=== PATIENT | male | born 1935 | race Caucasian/White ===

== ENCOUNTER → 2016-07-21 | Outpatient (CLI) | payer MEDICARE ==
[~2016-07-21] MED LIST: ASPI1TAB69 PO; ASPI81 PO; CALC-137 PO; CALC600T25 PO; CENTTAB9 PO; DIOV80TA4 PO; ESCI20TA PO; FENO160T PO; FISH1000 PO; LANTUS2P SQ; LANTUSP SQ; LEVO50TA4 PO; LEVO88TA2 PO; LEXA20TA PO; LIPI80TA PO; LIPI80TA16 PO; MULTTAB67 PO; NEUR300C PO; NEXI20CA PO; NIAC500T5 PO; OMEGCAP PO; OXYC1TAB36 PO; PERC10TA27 PO; PERC7.5T13 PO; PRIL20TA2 PO; URSO300 PO; URSO300C2 PO; VALS1TAB70 PO; VITA200012 PO; VITA200017 PO
[2016-07-21 11:19] LABS: BASOPHIL % 0.5 % (0.0-2.0); EOSINOPHIL # 0.1 TH/MM3 (0-0.4); EOSINOPHIL % 1.4 % (0.0-4.0); HEMATOCRIT 34.5 % (39.0-51.0); HEMO FLAGS DIFF FINAL; LYMPH % 16.9 % (9.0-44.0); MEAN CORPUSCULAR HEMOGLOBIN 30.7 PG (27.0-34.0); MEAN CORPUSCULAR HGB CONC 33.3 % (32.0-36.0); MONO % 12.1 % (0.0-8.0); NEUT % 69.1 % (16.0-70.0); PLATELET COUNT 132 TH/MM3 (150-450); RED BLOOD COUNT 3.75 MIL/MM3 (4.50-5.90); RED CELL DISTRIBUTION WIDTH 13.7 % (11.6-17.2); WHITE BLOOD COUNT 5.7 TH/MM3 (4.0-11.0)
[2016-07-21 11:40] LABS: BICARBONATE 27.9 MEQ/L (21.0-32.0)
--- NOTE | 2016-07-21 19:18 | EKG ---
Date Performed: 07/21/2016 Time Performed: 10:11:57 PTAGE: 80 years EKG: Sinus rhythm WITH FIRST DEGREE AV BLOCK WITH OCCASIONAL VENTRICULAR PREMATURE COMPLEXES MODERATE INTRAVENTRICULAR CONDUCTION DELAY ABNORMAL ECG NO PREVIOUS TRACING DOCTOR: Burt Moreland Interpretating Date/Time 07/21/2016 19:16:10
== END ==
LOC: CPRE 09:38
PROVIDERS: ATTEND Orthopaedic Surgery Orthopaedic Surgery of the Spine
DX: Z01.810 Encounter for preprocedural cardiovascular examination (principal); Z01.812 Encounter for preprocedural laboratory examination; M50.323 Other cervical disc degeneration at C6-C7 level; M50.222 Other cervical disc displacement at C5-C6 level; M50.223 Other cervical disc displacement at C6-C7 level; I44.0 Atrioventricular block, first degree; I49.3 Ventricular premature depolarization
CPT/HCPCS: 36415; 80048; 85025; 93005

== ENCOUNTER 2016-07-31 07:15 | Observation (INO) | payer MEDICARE ==
[~2016-07-31] VITALS: Ht 172.7 cm; Wt 95.0 kg
[~2016-07-31 07:15] MED LIST changes: -ASPI81 PO; -CALC-137 PO; -CENTTAB9 PO; -DIOV80TA4 PO; -FISH1000 PO; -LANTUSP SQ; -LEVO50TA4 PO; -LEXA20TA PO; -LIPI80TA16 PO; -NEUR300C PO; -PERC10TA27 PO; -PERC7.5T13 PO; -PRIL20TA2 PO; -URSO300 PO; -VITA200017 PO
[2016-07-31] MEDS ORDERED: SODIUM CHLOR 0.9% 250 ML INJ 250 ML ONE (08:01)
[2016-07-31] MEDS ORDERED: LACTATED RINGER'S 1000 ML INJ 1,000 ML ONE (08:02)
[2016-07-31] MEDS ORDERED: VANCOMYCIN HCL 1000 MG VIAL ONE (08:02)
[2016-07-31 08:03] VITALS: BP 153/75; PULSE 71; RESP 18; TEMP 98; O2SAT 98
[2016-07-31] MEDS ORDERED: BUPIVACAINE/EPINEPHRINE 0.25% PF 30 ML VIAL ONE (08:25)
[2016-07-31] MEDS ORDERED: GENTAMICIN SULFATE 80 MG/2 ML VIAL ONE (08:25)
[2016-07-31] MEDS ORDERED: METOPROLOL TARTRATE 25 MG TAB PO PRN (08:30)
[2016-07-31] MEDS ORDERED: CHLORHEXIDINE GLUCONATE 4% SOLN 120 ML BTL TOP SCH (08:30)
[2016-07-31] MEDS ORDERED: LACTATED RINGER'S 1000 ML IV SCH (08:30)
[2016-07-31] MEDS ORDERED: VANCOMYCIN 1000 MG/NS 250 ML (for <70 kg) IV SCH ×2 (08:30)
[2016-07-31] MEDS ORDERED: INSULIN HUMAN REGULAR 1,000 UNITS/10 ML VIAL SQ PRN (08:30)
[2016-07-31] MEDS ORDERED: ceFAZolin 2 GM PREMIX 50 ML IV SCH (08:30)
[2016-07-31] MEDS ORDERED: SODIUM CHLORID 0.9% 500 ML IV SCH (08:30)
[2016-07-31] MEDS ORDERED: ACETAMINOPHEN 1000 MG/100 ML VIAL IV ONE (09:30)
[2016-07-31] MEDS ORDERED: DEXAMETHASONE SOD PHOS 4 MG/ML VIAL ONE (09:31)
[2016-07-31] MEDS ORDERED: MIDAZOLAM HCL 2 MG/2 ML VIAL ONE (09:31)
[2016-07-31] MEDS ORDERED: FAMOTIDINE 20 MG/2 ML VIAL ONE (09:31)
[2016-07-31] MEDS ORDERED: ePHEDrine/NS 25 MG/5 ML SYR IV ONE (12:00)
[2016-07-31] MEDS ORDERED: LACTATED RINGER'S 1000 ML INJ 2,000 ML IV ONE (12:00)
[2016-07-31] MEDS ORDERED: PHENYLEPH/NS 1000 MCG/10 ML SYR IV ONE (12:00)
[2016-07-31] MEDS ORDERED: PROPOFOL 200 MG/20 ML AMP IV ONE (12:00)
[2016-07-31] MEDS ORDERED: NEOSTIGMINE 3 MG/3 ML SYR IV ONE (12:00)
[2016-07-31] MEDS ORDERED: ONDANSETRON HCL 4 MG/2 ML VIAL IV PUSH ONE (12:00)
--- NOTE | 2016-07-31 13:23 | HHI.PR ---
Immediate Post Op Note Procedure Date: Jul 31, 2016 Pre Op Diagnosis: C5-6 ODC,Joel FS C6-7 ODC,HNP,Joel FS DDD,OA Joel Cervical Rad Post Op Diagnosis: Same Surgeon: Juan Murillo MD Manager Field Sales(s): Monica Godoy PA-C Procedure: C5-6,C6-7 AIF,ACC,ASI Complications: None Estimated blood loss: See chart Anesthesia: General Drains: None Patient to: PACU Patient Condition: Good Implant/Devices: SEE IMPLANT LOG (if applicable) Date/Time of Procedure: SEE SURGICAL CARE RECORD Juan Murillo MD Jul 31, 2016 13:23
[2016-07-31] MEDS ORDERED: PROMETHAZINE INJ 25 MG/ML VIAL IM PRN (13:30)
[2016-07-31] MEDS ORDERED: oxyCODONE/ACETAMINOPHEN 7.5 MG/325 MG TAB PO PRN ×2 (13:30)
[2016-07-31] MEDS ORDERED: ALUMINUM/MAGNESIUM/SIMETH 30 ML CUP PO PRN (13:30)
[2016-07-31] MEDS ORDERED: ONDANSETRON HCL 4 MG/2 ML VIAL IV PRN (13:30)
[2016-07-31] MEDS: SODIUM CHLORIDE 0.9% FLUSH 5 ML FLUSH IVF SCH ×2 (13:30→20:06)
[2016-07-31] MEDS ORDERED: Post-op Orders (for Pharmacy) MISC XX ONE (13:30)
[2016-07-31] MEDS ORDERED: MORPHINE SULFATE 4 MG/ML INJ IV PUSH PRN (13:30)
[2016-07-31] MEDS ORDERED: SODIUM CHLORIDE 0.9% FLUSH 5 ML FLUSH IVF PRN (13:30)
[2016-07-31] MEDS ORDERED: fentaNYL CITRATE 250 MCG/5 ML AMP ONE (13:39)
--- NOTE | 2016-07-31 13:45 | PD.OP ---
cc: Juan Murillo MD; Baron Murillo MD Operative Report Date of Surgery: Jul 31, 2016 Preoperative Diagnosis: Osteophyte disc complex C5 6 and C6 7. Left greater than right bilateral cervical radiculopathy. Cervical instability, C5 6, moderate Postoperative Diagnosis: Same Procedure: Anterocervical discectomy decompression and bilateral foraminotomies, C5 6. Anterocervical discectomy decompression and bilateral foraminotomy, C6 7. Right anterior iliac crest bone graft Anesthesia: Gen. Surgeon: Baron Murillo Manager Actuarial(s): LINDSAY Cortés Operation and Findings: EBL: 100 cc INDICATIONS: Patient is a 80-year-old male with significant spinal stenosis and bilateral cervical radiculopathy related to the above condition. Despite conservative care the patient was still very painful and symptomatic. He now presents for surgical treatment NOTE: Jeaneth Cortés PA-C was present for the entire surgical procedure as my orthodontic technician assistant. In my medical opinion her skill and care was necessary for proper management of this patient PROCEDURE: The patient was brought to the operating room and anesthetized in the supine position. This patient was positioned supine on the radiolucent table. All pressure points were protected in the anterior cervical spine and iliac crest was scrubbed with alcohol followed by Hibiclens followed by ChloraPrep. A timeout was done and antibiotics were given within 1 hour time window. Lateral radiographic images were used identifying the proper level. A right anterior incision was made in line with skin creases. The platysma was opened in line with the incision. Deep dissection continued in the interval between the carotid sheath and the esophagus. The longus-coli muscles were lifted on both sides and retractors were positioned allowing good exposure. Lateral radiographic images were used to identify the proper level. [place] style interosseous pins were placed at C5 and C6 allowing exposure to that level. The microscope was rolled into the field. A total discectomy was accomplished and posterior osteophytes were removed. The posterior longitudinal ligament and annulus was taken down. Bilateral foraminotomies were accomplished. The endplates were squared up anticipating later bone grafting. A blunt probe could be placed out each foramen without evidence of nerve root compromise. The C5 pin was placed down to C7. An anterior exposure was accomplished. We performed a total discectomy with excision of the posterior annulus and posterior longitudinal ligament. Bilateral foraminotomies were accomplished. Osteophytes were removed. The endplates were squared up anticipating later bone grafting. A blunt probe could be placed out each foramen without evidence of nerve root compromise. The left iliac crest was approached. A small stab incision was made allowing percutaneous access to the anterior iliac crest. Multiple cores of cancellous bone were harvested and taken to the back table to be used for later bone grafting. The wound was irrigated anesthetized and closed with 4-0 Vicryl followed by Dermabond. The case was turned over to Dr. Juan Murillo for fusion and instrumentation per his dictation. FINDINGS: There was evidence of a high-grade stenosis at both levels with significant bilateral foraminal stenosis. At the C6 7 level the C6-C7 foramen had significant stenosis related to an osteophyte which was resected. The decompression was felt be very satisfactory at both levels. No complication was noted. NOTE: This surgery was performed in 2 parts. The first part was the neurosurgical decompression performed under the variable power stereo microscope by the undersigned in addition to the bone graft. The second portion of the surgery will be performed by the orthopedic spine component by co -surgeon, Dr. Juan Murillo for the anterior fusion with interbody cage and anterior plate. The skill of 2 surgeons was necessary to perform distinct separate procedural services as dictated above and dictated in the following operative note by Dr. Juan Murillo. Baron Murillo MD Jul 31, 2016 13:45
[2016-07-31] MEDS ORDERED: LACTATED RINGER'S 1000 ML INJ 1,000 ML IV SCH (14:00)
[2016-07-31] MEDS ORDERED: *morphine SULFATE 8 MG/ML PERIprocedure ONLY ONE (14:07)
--- NOTE | 2016-07-31 14:23 | RADRPT ---
EXAM DATE/TIME: 07/31/2016 11:35 [place] COMPARISON: No previous studies available for comparison. INDICATIONS : C5-6, C6-7 Anterior cervical disc fusion. MEDICAL HISTORY : Hypertension. Gastroesophageal reflux disease. Diabetes mellitus type II. Arthritis. SURGICAL HISTORY : None. ENCOUNTER: Initial ACUITY: 1 day PAIN SCORE: Non-responsive. LOCATION: Cervical spine. FINDINGS: Two projection examination was performed. Anterior surgical plate and screws from C5-C7. There is no rmal alignment and curvature of the vertebral bodies down to the level of C7. No evidence of fractur e or subluxation. Vertebral body height is maintained. The disc spaces are maintained. The prevert ebral soft tissues are of normal thickness. The atlanto-axial articulation is intact. CONCLUSION: Anterior cervical spine fusion. No evidence of complication. Marielos Oro MD on July 31, 2016 at 14:21 Board Certified Radiologist. This report was verified electronically.
[2016-07-31] MEDS ORDERED: DO NOT ADM ANY ANTICOAGULANT DRUGS XX PRN (15:00)
[2016-07-31] MEDS ORDERED: GLUCAGON 1 MG/ML VIAL OTHER PRN (15:30)
[2016-07-31] MEDS ORDERED: DEXTROSE 50% IN WATER 50 ML VIAL(D50) IV PUSH PRN (15:30)
--- NOTE | 2016-07-31 15:59 | PD.CONS ---
HPI Service [facility] Hospitalists Consult Requested By Dr. Murillo Reason for Consult Medical management Primary Care Physician Jose Lozano MD Diagnoses: History of Present Illness 80-year-old male with past medical history DDD who underwent discectomy C5-6, C6 -7. Hospitalists were consulted for medical management. The patient has a past medical history of DDD, HTN, depression, HLD, DM, GERD, hypothyroidism, PAD , CKD. The patient is seen postoperatively. He has some posterior neck pain, mild. He has a mild sore throat, was told he is to be on soft diet after surgery. He has no other acute medical complaints at this time including nausea , vomiting, chest pain, shortness of breath. History is obtained from the patient with family at bedside as well as review of the medical record. Review of Systems Other 10 point review of systems performed and was negative except as stated in the history of present illness Past Family Social History Allergies: Coded Allergies: Contrast Media (Verified Allergy, Severe, ONLY HAS ONE KIDNEY, 07/21/16) ADVISED NOT TO TAKE, ONE KIDNEY Past Medical History Degenerative disc disease Hypertension Depression Hyperlipidemia Diabetes mellitus GERD Hypothyroidism Peripheral arterial disease Chronic kidney disease stage 3-4 Past Surgical History Discectomy Shoulder replacement Cholecystectomy Cataract surgery AAA repair Lower extremity arterial bypass Spine surgery Reported Medications Nexium (Esomeprazole DR) 20 Mg Capdr 20 Mg PO DAILY Oxycodone-Acetaminophen 10-325 mg Tab 1 Tab PO Q4H PRN Lantus Inj (Insulin Glargine) 100 Unit/Ml Inj 75 Units SQ HS Calcium (Calcium Carbonate) 600 Mg Tab 1 Tab PO DAILY Levothyroxine (Levothyroxine Sodium) 88 Mcg Tab 88 Mcg PO DAILY Vitamin D3 (Cholecalciferol) 2,000 Unit Tab 2,000 Units PO DAILY Fenofibrate 160 Mg Tab 160 Mg PO DAILY Aspirin 81 Mg Tabdr 81 Mg PO DAILY [place]-3 Fish Oil/Vitamin (Fish Oil-Cholecalciferol) 1,000-1,000 Mg Cap 1 Cap PO BID Lipitor (Atorvastatin Calcium) 80 Mg Tab 80 Mg PO HS Multiple Vitamin 1 Tab 1 Tab PO DAILY Escitalopram (Escitalopram Oxalate) 20 Mg Tab 20 Mg PO DAILY Ursodiol 300 Mg Cap 300 Mg PO BID Valsartan 320 Mg Tab 320 Mg PO DAILY Niacin 500 Mg Tab 500 Mg PO DAILY Active Ordered Medications Current Medications Medications (Trade) Dose Ordered Sig/Haja Route Start Time Stop Time Status Last Admin Lactated Ringer's 1,000 ml @ 30 mls/hr Q24H IV 07/31/16 08:30 (NS 500 ml Inj) 500 ml @ 30 mls/hr [id number] IV 07/31/16 08:30 08/01/16 08:29 (Hibiclens 4% Top Soln) 1 applic ONCE TOP 07/31/16 08:30 08/03/16 08:29 (Lipitor) 80 mg HS PO 07/31/16 21:00 (Lexapro) 20 mg DAILY PO 08/01/16 09:00 (Tricor) 145 mg DAILY PO 08/01/16 09:00 (Levemir Inj) 75 units HS SQ 07/31/16 21:00 (Synthroid) 88 mcg DAILY@0600 PO 08/01/16 06:00 (Actigall) 300 mg BID PO 07/31/16 21:00 (Diovan) 320 mg DAILY PO 08/01/16 09:00 (Protonix) 20 mg DAILY PO 08/01/16 09:00 Niacin 500 mg 500 mg DAILY PO 08/01/16 09:00 (Lr 1000 ml Inj) 1,000 ml @ 80 mls/hr [id number] IV 07/31/16 14:00 07/31/16 14:00 (NS Flush) 2 ml UNSCH PRN IVF 07/31/16 13:30 IV Flush 2 ml 2 ml BID IVF 07/31/16 13:30 (Ancef Inj/NS Inj) 100 ml @ 200 mls/hr Q8H IV 07/31/16 18:00 08/01/16 10:29 (Morphine Inj) 3 mg Q3H PRN IV PUSH 07/31/16 13:30 (Phenergan Inj) 25 mg Q4H PRN IM 07/31/16 13:30 (Theragran M Tab) 1 tab BID PO 08/01/16 09:00 09/30/16 08:59 (Zofran Inj) 4 mg Q6H PRN IV 07/31/16 13:30 (Mag-Al Plus Susp Liq) 30 ml Q6H PRN PO 07/31/16 13:30 (Ambien) 5 mg HS PRN PO 07/31/16 21:00 (Percocet 7.5-325 Mg) 1 tab Q6H PRN PO 07/31/16 13:30 (Percocet 7.5-325 Mg) 2 tab Q6H PRN PO 07/31/16 13:30 Miscellaneous Information ALL NURSING DEPARTME... UNSCH PRN XX 07/31/16 15:00 08/01/16 14:59 (D50w (Vial) Inj) 25 ml UNSCH PRN IV PUSH 07/31/16 15:30 (Glucagon Inj) 1 mg UNSCH PRN OTHER 07/31/16 15:30 Family History Father with cancer Mother with dementia Social History Former tobacco use 20 years ago Physical Exam Vital Signs Vital Signs Date Time Temp Pulse Resp B/P Pulse Ox O2 Delivery O2 Flow Rate FiO2 07/31/16 14:45 98.1 78 15 152/77 98 Nasal Cannula 2 07/31/16 14:30 71 15 150/74 98 Nasal Cannula 3 07/31/16 14:15 72 14 151/77 98 Nasal Cannula 3 07/31/16 14:00 77 15 146/74 98 Nasal Cannula 3 07/31/16 13:45 77 15 132/67 97 Nasal Cannula 3 07/31/16 13:32 97.5 75 15 130/63 97 Nasal Cannula 3 07/31/16 08:03 98.0 71 18 153/75 98 Physical Exam GENERAL: Well-developed well-nourished. In no acute distress. SKIN: Warm and dry. No lesions noted. HEENT: Normocephalic. Pupils equal and round. Mucous membranes pink and moist. Cervical collar in place with right anterior neck surgical dressing, CDI. CARDIOVASCULAR: Regular rate and rhythm. No murmur appreciated. RESPIRATORY: No accessory muscle use. Clear to auscultation. Breath sounds equal bilaterally. GASTROINTESTINAL: Abdomen soft, non-tender, nondistended. Bowel sounds x4. MUSCULOSKELETAL: No obvious deformities. No clubbing or cyanosis. No edema. NEUROLOGICAL: Awake and alert. No focal neurological deficits. Moves upper and lower extremities spontaneously. Normal speech. Sensation grossly intact in upper and lower extremities. Strength 5/5. PSYCHIATRIC: Appropriate mood and affect; insight and judgment normal. Imaging Last Impressions Cervical Spine X-Ray 07/31/16 0000 Signed Impressions: Service Date/Time: Thursday, July 31, 2016 11:35 - CONCLUSION: Anterior cervical spine fusion. No evidence of complication. Marielos Oro MD Assessment and Plan Assessment and Plan 80-year-old male with past medical history DDD who underwent discectomy C5-6, C6 -7. Hospitalists were consulted for medical management. The patient has a past medical history of DDD, HTN, depression, HLD, DM, GERD, hypothyroidism, PAD , CKD. S/P Anterocervical discectomy decompression and bilateral foraminotomies, C5 6. Anterocervical discectomy decompression and bilateral foraminotomy, C6 7. Right anterior iliac crest bone graft -Postoperative care per primary surgery team including activity, diet, pain control, and rehabilitation efforts. Diabetes mellitus: Continue home basal insulin 75 units at night. Additional coverage with SSI with Accu-Cheks. Chronic kidney disease stage IIIIV: Creatinine 2.44 on 07/21/16. Follow-up BMP in the a.m. Other chronic medical conditions as listed above: Stable at this time and will continue home medications as indicated. DVT prophylaxis: Per surgery service. Written by Avelino Redd, acting as scribe for Dr. Ramsey on 07/31/16 at 15:59. The documentation accurately reflects the work performed [id number] by ca Dr. Ramsey on 07/31/16 at 15:59. Discussed Condition With Patient with family at bedside. Avelino Redd Jul 31, 2016 15:59 Medina Ramsey MD Jul 31, 2016 16:24
[2016-07-31 16:00] VITALS: BP 162/92; PULSE 87; RESP 16; TEMP 95.3; O2SAT 96
[2016-07-31] MEDS: INSULIN ASPART SUPPLEMENTAL SCALE SQ SCH ×2 (16:00→20:06)
[2016-07-31 17:26] VITALS: O2SAT 96
[2016-07-31 20:00] VITALS: BP 155/80; PULSE 95; RESP 16; TEMP 96.5; O2SAT 98
[2016-07-31 20:14] VITALS: O2SAT 98
[2016-07-31] MEDS ORDERED: ATORVASTATIN 80 MG TAB PO SCH (21:00)
[2016-07-31] MEDS ORDERED: INSULIN DETEMIR 100 UNITS/ML VIAL SQ SCH (21:00)
[2016-07-31] MEDS ORDERED: ZOLPIDEM TARTRATE 5 MG TAB PO PRN (21:00)
[2016-07-31] MEDS: URSODIOL 300 MG CAP PO SCH (21:01)
[2016-08-01] VITALS: BP 148/82; PULSE 95; RESP 16; TEMP 98.5; O2SAT 96
[2016-08-01 04:00] VITALS: BP 148/75; PULSE 102; RESP 16; TEMP 96.7; O2SAT 97
[2016-08-01] MEDS: INSULIN ASPART SUPPLEMENTAL SCALE SQ SCH (05:16)
[2016-08-01] MEDS ORDERED: LEVOTHYROXINE SODIUM 88 MCG TAB PO SCH (06:00)
--- NOTE | 2016-08-01 06:58 | PD.ORT.PN ---
Subjective Subjective Remarks pt states arms and neck are doing well, does complain of post op soreness also has sore throat, no chest pain, no SOB Objective Vitals Vital Signs Date Time Temp Pulse Resp B/P Pulse Ox O2 Delivery O2 Flow Rate FiO2 08/01/16 04:00 96.7 102 16 148/75 97 08/01/16 00:00 98.5 95 16 148/82 96 07/31/16 20:14 98 Nasal Cannula 2.00 07/31/16 20:08 Nasal Cannula 2.00 07/31/16 20:00 96.5 95 16 155/80 98 07/31/16 17:26 96 Nasal Cannula 2.00 07/31/16 16:00 95.3 87 16 162/92 96 07/31/16 14:45 98.1 78 15 152/77 98 Nasal Cannula 2 07/31/16 14:30 71 15 150/74 98 Nasal Cannula 3 07/31/16 14:15 72 14 151/77 98 Nasal Cannula 3 07/31/16 14:00 77 15 146/74 98 Nasal Cannula 3 07/31/16 13:45 77 15 132/67 97 Nasal Cannula 3 07/31/16 13:32 97.5 75 15 130/63 97 Nasal Cannula 3 07/31/16 08:03 98.0 71 18 153/75 98 I/O 07/31/16 07/31/16 07/31/16 08/01/16 08/01/16 08/01/16 07:00 15:00 23:00 07:00 15:00 23:00 Intake Total 2700 ml 360 ml 427 ml Output Total 900 ml 1300 ml 450 ml Balance 1800 ml -940 ml -23 ml Intake Oral 360 ml IV Total 100 ml 427 ml Other 2600 ml Output Urine Total 700 ml 1300 ml 450 ml Estimated Blood Loss 200 ml # Bowel Movements 0 Objective Remarks also seen by Dr. Juan Murillo [place] collar in place dressing dry and intact motor is +5/5 to UE Assessment & Plan Assessment and Plan POD # 1 s/p C5-7 ACDF [place] collar x 4 weeks no overhead lifting, no smoking, no NSAIDs Percocet 7.5 mg rx in chart discharge today, orthopedically stable Monica Godoy Aug 01, 2016 06:58
[2016-08-01 07:03] LABS: HEMATOCRIT 31.5 % (39.0-51.0); REVIEW FLAG FINAL
[2016-08-01 07:11] LABS: BICARBONATE 27.9 MEQ/L (21.0-32.0); MAGNESIUM 1.8 MG/DL (1.5-2.5); POTASSIUM 4.4 MEQ/L (3.5-5.1)
[2016-08-01 08:02] VITALS: BP 161/73; PULSE 78; RESP 18; TEMP 96.4; O2SAT 92
[2016-08-01] MEDS ORDERED: MULTIVITAMINS/MINERALS THERAPEUTIC TAB PO SCH (09:00)
[2016-08-01] MEDS: SODIUM CHLORIDE 0.9% FLUSH 5 ML FLUSH IVF SCH (09:00)
[2016-08-01] MEDS ORDERED: ESCITALOPRAM OXALATE 20 MG TAB PO SCH (09:00)
[2016-08-01] MEDS ORDERED: VALSARTAN 160 MG TAB PO SCH (09:00)
[2016-08-01] MEDS ORDERED: NIACIN 500 MG EXTENDED RELEASE TAB PO SCH (09:00)
[2016-08-01] MEDS ORDERED: PANTOPRAZOLE SOD 20 MG DELAYED RELEASE TAB PO SCH (09:00)
[2016-08-01] MEDS ORDERED: FENOFIBRATE 145 MG TAB PO SCH (09:00)
[2016-08-01] MEDS: URSODIOL 300 MG CAP PO SCH (09:51)
--- NOTE | 2016-08-01 10:19 | HHI.PR ---
Addendum to Inpatient Note Addendum Reason: Additional Documentation Additional Information Stable medically to follow up with PCP and consultants as OP. Hospitalist will sign off, reconsult as need. eMdina Ramsey MD Aug 01, 2016 10:19
[2016-08-01] MEDS ORDERED: PERC7.5T13 PO (10:32)
--- NOTE | 2016-08-06 06:31 | MP ---
cc: CAROL ANN TORRES MD, ALBERT W. M.D. DATE OF SURGERY July 31, 2016 PREOPERATIVE DIAGNOSES 1. C5-6 osteophyte disk complex, moderate bilateral foraminal stenosis. 2. C6-7 osteophyte disk complex, moderate herniated nucleus pulses, bilateral foraminal stenosis. 3. Cervical spine degenerative disc disease, osteoarthritis. POSTOPERATIVE DIAGNOSES 1. C5-6 osteophyte disk complex, moderate bilateral foraminal stenosis. 2. C6-7 osteophyte disk complex, moderate herniated nucleus pulses, bilateral foraminal stenosis. 3. Cervical spine degenerative disc disease, osteoarthritis. PROCEDURE C5-6, C6-7 anterior interbody fusion; C5-6, C6-7 [employer] ACC anterior cervical cage; C5-C7 [employer] [place] anterior spinal instrumentation. SURGEON Heriberto Murillo MD CABANA ATTENDANT Monica Godoy PA-C ESTIMATED BLOOD LOSS See chart. SPECIMEN None. COMPLICATIONS None. ANESTHESIA General. DRAINS None. CONDITION Stable. PLAN OF ACTIVITY As per orders. PROCEDURE Dr. Baron Murillo and myself were co-surgeons on this procedure. Dr. Baron Murillo performed the anterior cervical exposure the C5-6 and C6-7 anterior cervical discectomy, anterior decompression, bilateral foraminotomies using intraoperative microscope at C5-6 and C6-7 and right anterior iliac crest bone grafting. I was not present for his portion of the procedure. This is well described in his operative note. I performed the orthopedic stabilization and fusion portion of the procedure which is well described in my operative note. My lead assistant manager, Monica Godoy PA-C, was present for my portion of the case with me. She was medically necessary for this portion of the case because of the complexity of the case and to facilitate the performance of the procedure. The COMMUNITY DEVELOPMENT TECHNICIAN at the back table was not of the skill-set for this case to manipulate the instruments including multiple different types of soft tissue retractors, trial implants and permanent implants. The patient was met in the operating room, had satisfactory anesthesia by the Department of Anesthesia. The patient had right anterior cervical spine exposure. The operating microscope was used for anterior cervical discectomy at C5-6 and C6-7, anterior decompression and right anterior iliac crest bone grafting which was performed by Dr. Baron Murillo. I was not present for his portion of the procedure. The endplates at C6-7 were prepared for fusion. Hyaline cartilage endplate was removed using angle curettes and a ella. An 8, 10 x 12 ACC cage was placed in the interspace. The anterior iliac crest bone grafting was used under fluoroscopic guidance for an interbody fusion. Next, dissection was carried out at the C5-6 interspace. The endplates were curetted using angled curets and burrs. A 7, 10 x 12 ACC cage was placed in the interspace. Anterior iliac crest bone graft was used under fluoroscopically guided for the interbody fusino. Anterior osteophytes were removed using multiple different types of rongeurs and burrs. A 46-mm plate contoured in appropriate cervical lordosis. Two screws were used in the vertebral body at C5, C6 and C7. Each screw was 14 mm in length, 4.0 mm in outer diameter and fixed angle screws. Each screw was drilled and the screws were inserted with appropriate locking of the screw head to the plate. There was a single tack screw to keep the plate in appropriate position which was confirmed under fluoroscopically guided in the AP and lateral plane for appropriate positioning of the plate. Following the insertion of the anterior spinal instrumentation, intraoperative fluoroscopy in AP and lateral plane confirmed satisfactory position of the bone graft at C5-6 and C6-7, fixation of ACC cages at C5-6 and C6-7 with satisfactory position of anterior spinal instrumentation from C5 to C7. Because of the patient's very large size, there was some difficulty visualizing the lateral view. The wound was irrigated with copious amounts of sterile saline antibiotic solution. Surgiflo was used throughout the surgical case to help prevent postoperative bleeding. Adequate irrigation was performed. The patient was found to have no further bleeding. The wound was closed in multiple layers using 3-0 Vicryl suture. The skin was approximated with running subcuticular 4-0 Vicryl suture, Dermabond skin glue placed over the incision, sterile dressing applied, the patient placed in [place] cervical orthosis. The patient tolerated the procedure well and arrived in the recovery room in stable and satisfactory condition. MD HERVE Nunn/KARLIE /1:12 PM /6:03 AM
== END 2016-08-01 11:08 | disposition home or self-care (01) ==
LOC: HSDC 07:15 → HSDI 13:33 → N06B 15:15
PROVIDERS: ADMIT Orthopaedic Surgery Orthopaedic Surgery of the Spine; ATTEND Orthopaedic Surgery Orthopaedic Surgery of the Spine
DX: M50.123 Cervical disc disorder at C6-C7 level with radiculopathy (principal); M48.02 Spinal stenosis, cervical region; M53.2X2 Spinal instabilities, cervical region; M25.78 Osteophyte, vertebrae; I12.9 Hypertensive chronic kidney disease with stage 1 through stage 4 chronic kidney disease, or unspecified chronic kidney disease; N18.4 Chronic kidney disease, stage 4 (severe); E11.22 Type 2 diabetes mellitus with diabetic chronic kidney disease; I73.9 Peripheral vascular disease, unspecified; E03.9 Hypothyroidism, unspecified; E78.5 Hyperlipidemia, unspecified; K21.9 Gastro-esophageal reflux disease without esophagitis
CPT/HCPCS: 00600; 22551; 22552; 22845; 22853; 72040; 76000; 80048; 82948; 83735; 85014; 85018; 94150; C1713; G0378; J0131; J0690; J1100; J1580; J1815; J2250; J2270; J2370; J2405; J2710; J3010; J3370; J7050; J7120; L0150

== ENCOUNTER → 2017-06-04 | Day surgery (SDC) | payer MEDICARE ==
[~2017-06-04] MED LIST changes: +BUPIVACAINE HCL PF 0.75% 30 ML VIAL ONE; -CALC600T25 PO; +CALC600T5 PO; +EPINEPHrine HCL (1:1000) 30 MG/30 ML VIAL ONE; +LACTATED RINGER'S 1000 ML INJ 1,000 ML ONE; +LIDOCAINE 1.5%/EPINEPHrine 1:200,000 PF SOLN 30 ML AMP ONE; +MIDAZOLAM HCL 5 MG/ML VIAL (1 ML) ONE; -OXYC1TAB36 PO; +PERC7.5T13 PO; +PROPOFOL 200 MG/20 ML AMP IV ONE; +ceFAZolin 2 GM PREMIX 50 ML ONE
--- NOTE | 2017-06-04 11:00 | MP ---
cc: CARLOS SIERRA M.D. 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 PROCEDURE 1. Left shoulder arthroscopic extensive debridement of bursal tissue, scar tissue, rotator cuff tissue and bony overgrowth of the proximal humerus. 2. Left shoulder arthroscopic subacromial decompression including partial acromionectomy with removal of the anterior and lateral acromial scar tissue. ANESTHESIA Interscalene block and general SURGEON Carlos Sierra MD GUEST SERVICE AIDE SURGEON JOSIE Aguilar ESTIMATED BLOOD LOSS Minimum DRAINS None SPECIMEN Extensive scar tissue and bone was debrided and discarded. COMPLICATIONS None known. INDICATION Jeffrey Song is a 81-year-old male who previously underwent left reverse total shoulder arthroplasty. He has chronic pain and stiffness and crepitation and limited use of this arm with attempted overhead activities. He has chronic pain in his shoulder and he has failed multiple other means of conservative management. He also has a reverse shoulder on the right side which is functioning very well. The bony alignment of both shoulders looks relatively the same and the glenosphere on the left maybe slightly only a few millimeters more superior than one on the right and it maybe slightly anterior within the glenoid compared to the left again only by a few millimeters. With failure of conservative management, he is now offered arthroscopic surgery with no guarantees offered. The risks and benefits were thoroughly discussed and a detailed informed consent was obtained. STORE MGR An advanced registered nurse practitioner and his skill set was medically necessary to help with the arthroscopic equipment and the positioning of the arm and his skill set was medically necessary for the performance of the operation. PROCEDURE The patient was given interscalene block in the preop holding area then brought into the operating room and placed under a general anesthetic. He was placed in the well-padded beach chair position. The left upper extremity was prepped and draped in the usual sterile fashion. His neck was positioned by the patient while he was still awake and then we maintained it with axial alignment and taped it in place with a doughnut roll underneath the back of this head as the patient had a prior history of neck surgery. The bony landmarks were drawn out about the shoulder. IV antibiotics were given, time-out was completed. We used a two portal technique posteriorly underneath the acromion and lateral to the junction of the anterior and middle thirds of the acromion. Prior to placing the arthroscope, we took the arm through a range of motion and we did note crepitation anterolaterally where he his reproducible symptoms on multiple prior examinations. In introducing the arthroscope, we encountered a tremendous amount of scar tissue which we tried to break up with the blunt trocar and then we made our lateral portal and tried to bring in the blunt trocar to break up scar tissue and then proceeded with extensive debridement of the scar tissue in the bursal region, lateral border, posterior aspect of the humeral head, anterior aspect of the humeral head. Once we had adequate visualization, we photographed large scar tissue from the humeral head to the anterior acromial process and then proceeded to take this down and then identified the anterior acromial spurring and then proceeded with taking out more extensive amounts of scar tissue and then performing a subacromial decompression and then doing a follow-up photograph here and then continued to take out extensive scar tissue and we visualized the superior aspect of the reverse shoulder and there was prior retracted rotator cuff which was debrided and sutures were debrided. We thoroughly cleaned out any scar tissue which was restricting posteriorly and continued to clean out scar tissue anteriorly and come down anterior where we had the crepitation preoperatively and we identified some bone overgrowth in this area and we used the shaver in the bur mode to take down this bony overgrowth and we did photographs pre and post on this and then we found another bony overgrowth anteriorly and we took this down from additional scar tissue which was removed. Meticulous hemostasis was obtained throughout. The final photographs were taken. The arthroscopic equipment was removed. We checked range of motion of the shoulder and there was no significant crepitation at this point with improvement in range of motion of the shoulder. We proceeded to close with absorbable sutures, Steri-Strips and a sterile dressing applied. The patient was awoken and returned to the recovery room in stable condition. MD SACHA Medina/TRENT /9:36 AM /10:47 AM
== END | disposition home or self-care (01) ==
LOC: ESDC 06:12
PROVIDERS: ATTEND Orthopaedic Surgery Sports Medicine
DX: M75.42 Impingement syndrome of left shoulder (principal); M24.812 Other specific joint derangements of left shoulder, not elsewhere classified; E11.9 Type 2 diabetes mellitus without complications; Z79.4 Long term (current) use of insulin
CPT/HCPCS: 01630; 01991; 29823; 29826; 64417; 76942; 82948; J0171; J0690; J2250; J7120

== ENCOUNTER 2018-06-22 05:40 | Inpatient (IN) ==
[2018-06-22] MEDS ORDERED: Chlorhexidine Gluconate 2% 1 Pack (2 Cloths) TOPICAL ONE (06:11)
[2018-06-22] MEDS ORDERED: Metoprolol Tartrate 25 MG Tablet PO ONE (06:11)
[2018-06-22] MEDS ORDERED: ceFAZolin 1 GM Premix Inj 2 GM/100 ML PIGGYBACK IV.SIG ONE (06:31)
[2018-06-22] MEDS ORDERED: Protamine Sulfate Inj 50 MG/5 ML Vial ONE ×2 (06:31→09:35)
[2018-06-22] MEDS ORDERED: Heparin 10,000 UNITS/10 ML Vial (for IV use) ONE (06:31)
[2018-06-22] MEDS ORDERED: Heparin/NS PF Inj 500 ML ONE (06:32)
[2018-06-22] MEDS ORDERED: Thrombin Topical 20,000 UNIT Spray Kit TOPICAL ONE (06:32)
[2018-06-22] MEDS ORDERED: Bupivacaine 0.5% Inj 50 ML MDV Vial ONE (06:32)
[2018-06-22] MEDS ORDERED: Sodium Chlor 0.9% Inj 500 ML IV.SIG SCH (07:00)
--- NOTE | 2018-06-22 07:10 | P.PNVS ---
- Pre-operative Note Planned Procedure: RIGHT groin reconstruction Interval History: Pt has been feeling well since I saw him in clinic. No interval changes in H&P that would preclude OR. Labs: Hct 29 INR 1.0 cr 2.6 plt 161 Blood: T&S EKG: no acute ST changes Imaging: CO2 angiogram reviewed Orders: NPO Ancef 2g IV OCTOR Post-operative Destination: PACU and CPCU Operative site marked: Yes Consent: Informed consent has been obtained from Jeffrey Song JR. I have explained the procedure in detail and discussed the risks, benefits, and potential complications. All questions have been answered. Patient Contact Information: "Katerina" [phone]
--- NOTE | 2018-06-22 09:57 | P.OP ---
Date of procedure: 06/22/18 Procedure: R [employer] interposition (8mm Dacron) Implants: 8mm Dacron Anesthesia: GETA Surgeon: Dimitrios Deleon MD Study Lead: Rivera Bell Estimated blood loss (mL): 150 IV fluids (mL): 1,500 Urine output (mL): 300 Pathology: none sent Operation and Findings: dense plaque proximal to GSV bypass strong Doppler signal in profunda and feet after interposition
[2018-06-22] MEDS ORDERED: *morphine SULFATE 8 MG/ML PERIprocedure ONLY ONE (10:32)
[2018-06-22] MEDS ORDERED: fentaNYL Citrate Inj 100 MCG/2 ML Ampul ONE (10:33)
[2018-06-22] MEDS ORDERED: HYDROmorphone PF Inj 0.5 MG/0.5 ML Syringe ONE ×2 (10:42→13:43)
--- NOTE | 2018-06-22 11:18 | M6 ---
cc: Dimitrios Deleon MD DATE: 06/22/2018 PREOPERATIVE DIAGNOSES: Peripheral arterial occlusive disease, right lower extremity claudication, failing bypass. POSTOPERATIVE DIAGNOSES: Peripheral arterial occlusive disease, right lower extremity claudication, failing bypass. PROCEDURE: 1. Right common femoral artery interposition with 8 mm Dacron. 2. Redo bypass. ATTENDING SURGEON: Dimitrios Deleon MD. ANESTHESIA: General. CHOCOLATE FINISHER SURGEON: Rivera Bell MD. INDICATIONS: Mr. Song is an 82-year-old gentleman with previous aortobifemoral bypass graft as well as a femoral to popliteal artery bypass graft. The interposing [place] anatomy was highly calcified and his ABIs had diminished. He has a failing bypass and was taken to the operating room for this. Intraoperatively, an interposition was performed of the common femoral artery with superficial femoral artery with 8 mm Dacron. DESCRIPTION OF PROCEDURE: Informed consent was obtained from the patient. He was taken to the operating room and placed supine on the operating table. Appropriate timeout was taken to ensure the patient's identity, operative site, and planned procedure. The administration of 2 grams of Ancef was initiated prior to skin incision and will be discontinued after a single preoperative dose. Everyone in the room agreed with the timeout and we proceeded. He was prepped from his nipples to his toes. A vertical incision was made in the patient's right groin and carried down through subcutaneous tissue with electrocautery. Dense scar tissue was encountered. The previous bypass was encountered and dissected free. Branches of the SFA were also encountered, , and dissected free. The main profunda was dissected free and the previous aortobifemoral bypass limb was dissected free. This was the only part with a palpable pulse. The patient was systemically heparinized and throughout the remainder of the case ACT was confirmed to be greater than 250. Proximal control of the ABF limb as well as the [place] iliac circulation was obtained, the profunda as well as the previous bypass graft were all controlled. The common femoral artery was resected and then anastomosis performed from the distal aspect of the aortobifemoral right at the level of the profunda down to the conjunction of the previous fem-pop bypass in the [place] SFA. This was done with end-to-end suture using interposition Dacron with running 5-0 Prolene proximally and distally. The occlusion was flushed and hemostatic. There were Doppler signals in the profunda and in the feet that were graft dependent. The wound was irrigated and made hemostatic. The heparin was reversed with protamine. The wound was closed with 2-0 Polysorb in 2 layers, 3-0 Polysorb and 4-0 Monocryl. The sponge and needle counts were correct at the end of the case. I was present and scrubbed and performed the entire procedure. MD MARGOT Santana/camille , 10:03 AM , 10:10 AM
[2018-06-22] MEDS: Senna/Docusate Sodium 8.6/50 MG Tablet PO SCH (20:50)
[2018-06-22] MEDS: Insulin Detemir Inj 1,000 UNIT/10 ML Vial SQ SCH (20:55)
[2018-06-22] MEDS ORDERED: Non-Formulary Drug (Omega 3-Dha-Epa-Fish Oil [Omega-3] 1 CAP) PO SCH (21:00)
[2018-06-22] MEDS: Morphine Inj 4 MG/ML Vial IV.PUSH PRN (22:59)
[2018-06-23] MEDS: Morphine Inj 4 MG/ML Vial IV.PUSH PRN ×2 (00:36→06:42)
[2018-06-23 05:05] LABS: Hematocrit 27.8 % (39.0-51.0); Hemoglobin 9.5 gm/dL (13.0-17.0); Mean Corpuscular Hemoglobin 32.3 pg (27.0-34.0); Mean Corpuscular Volume 94.9 fL (80.0-100.0); Mean Platelet Volume 7.2 fL (7.0-11.0); Platelet Count 162 th/mm3 (150-450); Red Blood Count 2.93 mil/mm3 (4.50-5.90); Red Cell Distribution Width 14.5 % (11.6-17.2); White Blood Count 9.1 th/mm3 (4.0-11.0)
[2018-06-23 05:37] LABS: Calcium 8.1 mg/dL (8.5-10.1); Carbon Dioxide 27.5 meq/L (21.0-32.0); Potassium 4.7 meq/L (3.5-5.1)
[2018-06-23] MEDS: Levothyroxine 100 MCG Tablet PO SCH (06:43)
[2018-06-23] MEDS ORDERED: Dextrose 50% in Water 50 ML Vial IV.PUSH PRN (07:27)
--- NOTE | 2018-06-23 07:31 | P.PNVS ---
Subjective Post Op Day #: 1 Procedure: R groin reconstruction (redo) Subjective/Hospital Course: hypoglycemic this morning and c/o burning in thigh. otherwise ok foot ok pain modestly controlled Objective Vital Signs / I&O: Vital Signs 06/22/18 10:19 06/22/18 10:30 06/22/18 10:45 Temperature 97.5 F L Pulse Rate 87 85 82 Respiratory Rate 15 20 12 Blood Pressure 136/63 131/61 133/63 Pulse Oximetry 97 96 96 06/22/18 11:00 06/22/18 11:15 06/22/18 11:30 Temperature 97.9 F Pulse Rate 80 79 81 Respiratory Rate 14 14 14 Blood Pressure 133/63 130/63 123/85 Pulse Oximetry 93 L 94 L 96 06/22/18 12:00 06/22/18 13:00 06/22/18 13:30 Temperature Pulse Rate 82 78 77 Respiratory Rate 18 12 16 Blood Pressure 125/61 123/58 L 122/62 Pulse Oximetry 96 95 95 06/22/18 14:37 06/22/18 14:44 06/22/18 15:00 Temperature 98.4 F Pulse Rate 86 75 Respiratory Rate 18 18 Blood Pressure 117/75 Pulse Oximetry 96 06/22/18 16:00 06/22/18 17:00 06/22/18 18:00 Temperature 98.0 F Pulse Rate 90 85 76 Respiratory Rate 18 Blood Pressure 118/62 Pulse Oximetry 94 L 06/22/18 19:00 06/22/18 20:00 06/22/18 21:00 Temperature 97.4 F L Pulse Rate 76 89 88 Respiratory Rate 18 Blood Pressure 163/74 H Pulse Oximetry 95 06/22/18 21:20 06/22/18 22:00 06/22/18 23:00 Temperature Pulse Rate 86 97 H Respiratory Rate 16 Blood Pressure Pulse Oximetry 06/22/18 23:30 06/23/18 00:00 06/23/18 01:00 Temperature 98.0 F Pulse Rate 93 H 89 Respiratory Rate 16 18 16 Blood Pressure 155/65 H Pulse Oximetry 91 L 06/23/18 01:05 06/23/18 02:00 06/23/18 03:00 Temperature Pulse Rate 88 90 Respiratory Rate 16 Blood Pressure Pulse Oximetry 06/23/18 04:00 06/23/18 05:00 06/23/18 06:00 Temperature 97.4 F L Pulse Rate 94 H 90 94 H Respiratory Rate 16 Blood Pressure 135/64 Pulse Oximetry 93 L Intake & Output 06/22/18 06/23/18 06/23/18 18:59 06:59 18:59 Intake Total 3970 / 3970 780 / 780 Output Total 1325 / 1325 1050 / 1050 Balance 2645 / 2645 -270 / -270 Weight 89.7 kg 93 kg Intake: IV 1600 / 1600 Heparin/NS PF Inj 500 ML @ 0 500 / 500 mls/hr .ROUTE .[facility] Rx#: [id number] LR 1000 mL Inj 1,000 ML @ 30 1000 / 1000 mls/hr IV.SIG .Q24H G[facility] Rx#: [id number] Ancef 1 GM Premix Inj 2 gm In 100 / 100 100 ml @ 0 mls/hr IV.SIG .STK- [facility] ONE Rx#:[id number] Oral 870 / 870 780 / 780 Anesthesia Amount 1500 / 1500 Output: Estimated Blood Loss 150 / 150 Urine Amount (Catheter) 1175 / 1175 1050 / 1050 Indwelling Temp Sensing 1175 / 1175 1050 / 1050 Catheter Other: Date of Last Bowel Movement 06/21/18 Weight On Admission 89.7 kg Exam: sitting in chair, no apparent distress R groin Prevena in place, groin soft palpable PT Laboratory Results - last 24 hr 06/22/18 06/22/18 06/22/18 07:15 10:27 20:54 WBC RBC Hgb Hct MCV MCH MCHC RDW Plt Count MPV Sodium Potassium Chloride Carbon Dioxide Anion Gap BUN Creatinine Estimated GFR POC Glucose 96 105 97 Random Glucose Calcium 06/23/18 06/23/18 06/23/18 04:38 04:38 05:56 WBC 9.1 RBC 2.93 L Hgb 9.5 L Hct 27.8 L MCV 94.9 MCH 32.3 MCHC 34.0 RDW 14.5 Plt Count 162 MPV 7.2 Sodium 140 Potassium 4.7 Chloride 105 Carbon Dioxide 27.5 Anion Gap 8 BUN 39 H Creatinine 2.71 H Estimated GFR 23 L POC Glucose 50 L Random Glucose 42 L* Calcium 8.1 L 06/23/18 06/23/18 06/23/18 06:33 06:49 07:19 WBC RBC Hgb Hct MCV MCH MCHC RDW Plt Count MPV Sodium Potassium Chloride Carbon Dioxide Anion Gap BUN Creatinine Estimated GFR POC Glucose 70 65 L 68 Random Glucose Calcium Assessment and Plan - Assessment (1) Ischemia of both lower extremities Code(s): I99.8 - Other disorder of circulatory system Status: Acute - Plan POD#1 s/p R groin reconstruction 1. D50 this morning and will continue checks 2. Change pain meds to percocet 10/325 which he says works 3. D/C Kelley and watch for UOP 4. OOB and ambulate Discharge Planning: tomorrow (POD#2)
[2018-06-23] MEDS ORDERED: Dextrose 50% in Water Syringe 50 ML ONE (07:32)
[2018-06-23] MEDS ORDERED: VALSARTAN 320 MG PO SCH (09:00)
[2018-06-23] MEDS: Senna/Docusate Sodium 8.6/50 MG Tablet PO SCH ×2 (09:22→21:18)
[2018-06-23] MEDS: Fenofibrate 145 MG Tablet PO SCH (09:23)
[2018-06-23] MEDS: Calcium Carbonate 500 MG Tablet PO SCH (09:25)
[2018-06-23] MEDS: amLODIPine 10 MG Tablet PO SCH (09:25)
[2018-06-23] MEDS: oxyCODONE/Acetaminophen 10/325 Tablet PO PRN ×3 (09:26→19:07)
[2018-06-23] MEDS: Pantoprazole Sodium 20 MG DR Tablet PO SCH (09:32)
[2018-06-23] MEDS: Insulin NovoLOG Aspart Correctional Sugar Inj SQ SCH ×2 (12:11→17:58)
[2018-06-23] MEDS ORDERED: Sodium Chlor 0.9% Inj 500 ML IV.SIG ONE (17:00)
[2018-06-23] MEDS: Insulin Detemir Inj 1,000 UNIT/10 ML Vial SQ SCH (21:16)
[2018-06-24] MEDS: oxyCODONE/Acetaminophen 10/325 Tablet PO PRN ×2 (01:31→07:01)
[2018-06-24] MEDS: Insulin NovoLOG Aspart Correctional Sugar Inj SQ SCH ×2 (01:36→07:01)
[2018-06-24] MEDS: Levothyroxine 100 MCG Tablet PO SCH (07:02)
--- NOTE | 2018-06-24 08:54 | P.PNVS ---
Subjective Post Op Day #: 2 Procedure: R groin reconstruction (redo) Subjective/Hospital Course: 82/M s/p Redo R groin reconstruction POD 2 Pt alert in NAD, speech clear Pt ambulating Pt c/o difficulty voiding- previous hx of Pt was straight cathed this am Mild R groin discomfort- Prevena wound vac intact w/o hematoma or swelling B LE warm w/ motor intact Objective Vital Signs / I&O: Vital Signs 06/23/18 09:00 06/23/18 10:00 06/23/18 11:00 Temperature Pulse Rate 86 78 96 H Respiratory Rate Blood Pressure Pulse Oximetry 06/23/18 12:00 06/23/18 13:00 06/23/18 14:00 Temperature 97.9 F Pulse Rate 95 H 99 H 89 Respiratory Rate 20 Blood Pressure 128/59 L Pulse Oximetry 94 L 06/23/18 15:00 06/23/18 15:22 06/23/18 16:00 Temperature 97.8 F Pulse Rate 79 81 73 Respiratory Rate 20 Blood Pressure 120/57 L Pulse Oximetry 94 L 06/23/18 17:00 06/23/18 18:00 06/23/18 19:00 Temperature Pulse Rate 78 66 80 Respiratory Rate Blood Pressure Pulse Oximetry 06/23/18 19:37 06/23/18 20:00 06/23/18 21:00 Temperature 98.7 F Pulse Rate 80 80 Respiratory Rate 16 16 Blood Pressure 127/60 Pulse Oximetry 92 L 06/23/18 22:00 06/23/18 23:00 06/24/18 00:00 Temperature 98.6 F Pulse Rate 80 94 H 88 Respiratory Rate 16 Blood Pressure 138/65 Pulse Oximetry 92 L 06/24/18 01:00 06/24/18 02:00 06/24/18 03:00 Temperature Pulse Rate 88 82 83 Respiratory Rate 16 Blood Pressure Pulse Oximetry 06/24/18 04:00 06/24/18 05:00 06/24/18 06:00 Temperature 98.6 F Pulse Rate 86 86 84 Respiratory Rate 16 Blood Pressure 139/54 L Pulse Oximetry 93 L 06/24/18 07:36 06/24/18 08:12 Temperature 98.1 F Pulse Rate 83 98 H Respiratory Rate 20 Blood Pressure 131/78 Pulse Oximetry Intake & Output 06/23/18 06/24/18 06/24/18 18:59 06:59 18:59 Intake Total 1010 / 1010 480 / 480 Output Total 450 / 450 0 / 0 Balance 560 / 560 480 / 480 Weight 93 kg Intake: IV 50 / 50 D50W Syringe 50 ML @ 0 mls/hr . 50 / 50 ROUTE .[employer] ONE Rx#:[id number] Oral 960 / 960 480 / 480 Output: Urine 0 / 0 Urine Amount (Catheter) 450 / 450 Indwelling Temp Sensing 350 / 350 Catheter Straight 100 / 100 Other: Date of Last Bowel Movement 06/22/18 06/21/18 # Bowel Movements 0 0 Exam: GENERAL: GCS 15/NAD/Speech clear SKIN: Warm and dry/ R groin s/nt w/o hematoma or swelling CARDIOVASCULAR: Regular rate and rhythm without murmurs, gallops, or rubs. RESPIRATORY: Breath sounds equal bilaterally. No accessory muscle use. GASTROINTESTINAL: Abdomen soft, non-tender, nondistended. MUSCULOSKELETAL: No cyanosis, or edema. Palpable R/L DP LE warm w/ motor intact Laboratory Results - last 24 hr 06/23/18 06/23/18 06/23/18 12:04 17:21 21:12 POC Glucose 146 H 161 H 163 H 06/24/18 06/24/18 01:34 06:07 POC Glucose 173 H 172 H Assessment and Plan - Assessment (1) Ischemia of both lower extremities Code(s): I99.8 - Other disorder of circulatory system Status: Acute - Plan POD#2 s/p R groin reconstruction Pt doing well LE warm w/ motor intact Pt c/o difficulty voiding- Discussed w/ pt if unable to void will re-insert Kelley catheter at 11:00 am Pain controlled Ambulating well Plan Pt clear for d/c today once pt voids Discussed w/ and nurse if pt unable to void by 1100 will re-insert Kelley and have pt f/u with his Urologist in 1W Pt cleared for d/c w/ prevena wound vac Discussed and reviewed out pt care and management w/ pt Arranged out pt f/u Jinny Edwards NP [facility] [phone] Discharge Planning: Today once pt voids
[2018-06-24] MEDS: Calcium Carbonate 500 MG Tablet PO SCH (09:32)
[2018-06-24] MEDS: Pantoprazole Sodium 20 MG DR Tablet PO SCH (09:32)
[2018-06-24] MEDS: amLODIPine 10 MG Tablet PO SCH (09:33)
[2018-06-24] MEDS: Fenofibrate 145 MG Tablet PO SCH (09:33)
[2018-06-24] MEDS: Senna/Docusate Sodium 8.6/50 MG Tablet PO SCH (09:34)
--- NOTE | 2018-06-24 12:28 | P.DS ---
Discharge Summary - Admission Date 06/22/18 05:40 - Admission Diagnosis (1) Peripheral vascular occlusive disease - Discharge Date 06/24/18 - Discharge Diagnosis (1) Ischemia of both lower extremities Status: Acute (2) Peripheral vascular occlusive disease Status: Acute - Summary Brief History from admission: Mr. Song is an 82/, malewith a chief complaint of R LE claudication. He has a history of B LE bypasses with Dr. uGevara and a recent angiogram at [place]. This was done with CO2 because of intolerance of iodinated contrast (and congenital single kidney). The patient has R LE claudication that is worsening over the past 6 months and is now significantly lifestyle limiting. No rest pain and no tissue loss. SACHA's:R- 0.66/L-0.99 He has [employer] disease proximal to a patent vein graft bypass Otherwise is in reasonable health Procedure: R groin reconstruction (redo) Significant Findings: GENERAL: GCS 15/NAD/Speech clear SKIN: Warm and dry/ R groin s/nt w/o hematoma or swelling CARDIOVASCULAR: Regular rate and rhythm without murmurs, gallops, or rubs. RESPIRATORY: Breath sounds equal bilaterally. No accessory muscle use. GASTROINTESTINAL: Abdomen soft, non-tender, nondistended. MUSCULOSKELETAL: No cyanosis, or edema. Palpable R/L DP LE warm w/ motor intact Abnormal Lab Results 06/23/18 06/23/18 06/24/18 17:21 21:12 01:34 POC Glucose 161 H 163 H 173 H 06/24/18 06:07 POC Glucose 172 H Hospital Course: 82/M with a history of B LE distal bypasses with Dr. Guevara and recent angiogram (Done with CO2 because of intolerance of iodinated contrast and congenital single kidney) Angiogram reviewed by Dr. Deleon/Pt w/ [employer] disease proximal to a patent vein graft bypass SACHA 0.66/0.99 Pt s/p R LE revascularization by redo R groin reconstruction Successful revascularization- pt w/ palpable distal pulses and is w/o claudication Pt did well post operatively and was surveillanced in [facility] Pt developed urinary retention and Kelley Catheter was re-inserted Pt ambulating well, tolerating po Pt cleared for D/C POD 2 with Prevena wound vac to R groin and Kelley cath Arranged out pt follow up (Vascular) for POD 6 06/28/18 wound vac removal Arranged out pt follow up (Urology)- Urinary retention - Dr. Davies ([facility]) pt known to practice D/C instructions reviewed w/ pt E- [place] reviewed- No recent activity- Rx pain medication for out pt surgical pain management - Discharge Instructions Any questions or concerns: Call [facility] at [facility] [phone] Discharge Plan - Discharge Disposition Patient Disposition: Discharge Home - Discharge Condition Condition: Good - Discharge Order Discharge Orders: Discharge Order (Routine); Ordered 06/24/18 Ordered By: Jinny Edwards - Physicians Team Primary Care Provider: Jimena Esquivel Attending Provider: Dimitrios Deleon Other Providers: [employer],Insurance - Rxs /Orders / Referrals /Forms Prescriptions: New oxycodone-acetaminophen 10-325 mg Tablet 1 tab PO Q4-6H PRN (Reason: Pain) Qty: 20 RF: 0 Continue amlodipine 10 mg Tablet 10 mg PO DAILY aspirin 81 mg Tablet,Delayed Release (Dr/Ec) 81 mg PO DAILY atorvastatin 80 mg Tablet 80 mg PO HS calcium carbonate 600 mg calcium (1,500 mg) Tablet 600 mg PO DAILY cholecalciferol (vitamin D3) [Vitamin D3] 2,000 unit Capsule 2,000 unit PO DAILY escitalopram oxalate 20 mg Tablet 20 mg PO DAILY esomeprazole magnesium [Nexium] 20 mg Capsule,Delayed Release(Dr/Ec) 20 mg PO DAILY fenofibrate 160 mg Tablet 160 mg PO DAILY insulin glargine [Lantus U-100 Insulin] 100 unit/mL Solution 60 unit SUBCUT HS levothyroxine 100 mcg Capsule 100 mcg PO DAILY multivitamin [Multiple Vitamins] Tablet 1 tab PO DAILY niacin 500 mg Tablet 500 mg PO DAILY omega 0-qav-tva-fish oil [Bertram-3] 350 mg-235 mg- 90 mg-597 mg Capsule, Delayed Release(Dr/Ec) 1 cap PO BID ursodiol 300 mg Capsule 300 mg PO BID valsartan 320 mg Tablet 320 mg PO DAILY Discontinued oxycodone-acetaminophen 7.5-325 mg Tablet 1 tab PO Q6H PRN (Reason: Pain) Referrals: [facility] [Provider Group] - See Instructions (Follow up with Dr. Pedro Davies in 1-2W Your appointment is scheduled on 07/08/18 at 1:30 ([place] [facility]) ) Jimena Esquivel [Primary Care Provider] - See Instructions Dimitrios Deleon MD [Physician] - See Instructions (04/28/18 at 10:15 for wound vac removal ) - Post Discharge Care Plan Care Plan Goals: Discharge Care Plan Goals After Vascular Surgery Contact: Please call [phone] if you have any problems or have questions regarding your hospitalization. Directions to Meet Your Goals: 1. Diet: * You may resume a regular diet as you were eating at home before your admission. 2. Activity: * Increase your activity level gradually. * Keep surgical extremities elevated when at rest. This will help limit the swelling, bruising and discomfort normally present after surgery. * Walking is a good form of light exercise. Go for a walk at least 3 times per day. * No heavy lifting (lifting over 10 pounds) for at least 4 weeks from surgery. * Check with your surgeon to ensure when you are cleared for heavy lifting and full-intensity exercising. * Your strength will gradually improve. * No driving or operating motorized vehicles while on prescription pain medications. * No swimming until wounds fully healed. * Return to work when cleared by MD/PA/AVIONICS REPAIR TECHNICIAN. 3. Bathing: Shower daily. * Gently let soap and water run over your incision and pat dry. Do not scrub the incision/wound. * Don't soak in a bath or submerge your incision in water until your incision is healed and evaluated by your physician at follow-up (usually two weeks). 4. Wound Care: INCISION SITE CARE INSTRUCTIONS: * You may leave your incision open to air. * Keep your incision clean and dry, unless showering. See above. * Moisture near the incision will cause the wound to open. * No lotions, creams, ointments, or powders on incisions until they are well- healed. * If you have glue over the incision(s), allow it to fall off naturally in 1-3 weeks * If present, amanda/sutures will be removed 2-3 weeks after surgery during your follow-up clinic visit. * If present, change dressing/bandage when soaked/soiled as needed. * Observe wound daily, checking for signs and symptoms of infection including: foul odor, drainage from the incision, increased redness, increased pain at incision, or increased swelling. 5. Pain Control: Expect post-operative pain for 1-4 weeks after surgery. Your pain will improve gradually. * You may have been provided with a prescription for pain medication. Please take as directed, and be aware of side effects such as drowsiness, constipation and mild stomach discomfort. Pain pills on an empty stomach can cause nausea , so eat a small amount of food, such as crackers, when taking these pills. * Take kuxn-wej-osdgypl stool softeners (Colace or Senna) with your prescribed pain medication. * Acetaminophen (500mg every 6 hours) or Ibuprofen (400mg every 6 hours) may be used in conjunction with narcotics to relieve pain. DO NOT take more than 4 grams (4000mg) of Tylenol in one day, as this can harm your liver. DO NOT take ibuprofen IF: you have an allergy to non-steroidal anti-inflammatory medications, you are taking Coumadin, you have been told you have kidney problems, or you have a history of gastrointestinal bleeding or ulcers. DO NOT take more than 3.2 grams (3200mg) of ibuprofen in one day. * You may also find relief from using heat packs or pads or ice packs. 6. Bowel Regimen for Constipation: * People who undergo surgery are likely to develop post-operative constipation. Exposure to narcotics and changes in diet, fluid intake, and physical activity are known contributors to constipation. We recommend routine stool softeners and/ or laxatives after surgery for most patients. Start by taking one medication. You can increase as directed to relieve constipation. Stop taking these medications if you develop diarrhea. These medications are available over-the- counter and do not require a prescription: * Colace is a stool softener. We recommend starting at 100mg orally twice per day as needed for soft stools and increase to a maximum of 200mg twice daily as needed. * Senna is a laxative that works by keeping water in the intestine to help stool move along the intestinal tract. Take 1 tablet daily as needed for soft stool and increase to a maximum of 2 tablets twice daily as needed. Take Senna with two full glasses of water each time. * Miralax, Dulcolax and Milk of Magnesia are other srml-pfb-rhfyjcj laxatives that may be used as needed for post-operative constipation. * Drink 6-8 glasses of water per day. * Consume 15-30g of fiber per day: * Metamucil powder, 1-2 tablespoons 1-2 times/day OR Benefiber powder, 2 tablespoons 4 times/day. * Avoid straining. 7. Follow-Up: Do Not miss your follow-up appointment. Keep up with all your appointments and yearly check ups If you have any of the following symptoms please call [phone] immediately: Excessive swelling of the affected extremity Sudden onset of severe or unusual pain in the affected extremity Pain that gets worse or is not relieved by medication Warmth, redness, or swelling in the skin around the wound Foul drainage from incision Extensive bruising or discoloration Wound that opens up or pulls apart Fever above 101.5F or shaking chills Nausea or vomiting Severe diarrhea or severe constipation Dizziness or fainting Chest pain, shortness of breath, or increased work of breathing Weight gain >10 lbs over 3-4 days Inability to urinate for more than 6 hours Cloudy or foul smelling urine Urge to urinate more often than usual Symptoms to Report to Your Doctor: Temperature 101F or higher Pain uncontrolled by medication Drainage or foul odor from incision Extensive bruising or discoloration Chest pain Shortness of breath Nausea, vomiting or dizziness Call 911: Call 911 right away if you have: Sudden onset of chest pain that is not relieved by medications Shortness of breath
== END 2018-06-24 15:30 | disposition home or self-care (01) ==
LOC: HSDI 05:40 → HCPC 14:00
PROVIDERS: ADMIT Surgery; ATTEND Surgery